=== PATIENT | female | born 1975 | race Caucasian/White ===

== ENCOUNTER → 2017-11-24 | Outpatient (CLI) | payer OTHER ==
[~2017-11-24] MED LIST: ACE3 PO; CITA-128 PO; IBU600 PO; IBU800 PO; LEVO750T25 PO; METR-1 PO; OND4 PO; PER PO; PREN-85 PO
--- NOTE | 2017-11-25 09:07 | RADIOLOGY IMAGING REPORT ---
FACILITY: [facility] PATIENT NAME: JAMMIE BERNABE : [id number] MR: [id number] V: [id number] EXAM DATE: [id number] ORDERING PHYSICIAN: VLADIMIR DIAZ TECHNOLOGIST: Bindu Nunn PROCEDURE:BILATERAL DIGITAL SCREENING MAMMOGRAM WITH CAD ASSISTED INTERPRETATION & 3D TOMOSYNTHESIS COMPARISON:None, this is the patient's baseline mammogram. INDICATIONS:SCREENING FINDINGS: Moderately heterogeneous fibroglandular tissue is seen throughout the breasts. The parenchymal pattern has remained stable allowing for difference in mammographic technique & patient positioning. There is no evidence of malignant appearing mass, malignant appearing calcifications or other secondary sign of malignancy in either breast. DIAGNOSTIC CATEGORY 1--NEGATIVE. RECOMMENDATIONS: ROUTINE MAMMOGRAM AND CLINICAL EVALUATION. IMPRESSION: BIRADS 1: Negative. No significant abnormality is seen. Dictated by: Charlene Arita M.D. on 11/24/2017 at 16:37 Transcribed by: ISMAEL on 11/25/2017 at 8:25 Approved by: Charlene Arita M.D. on 11/25/2017 at 9:06 [facility]
== END ==
LOC: MAMO 00:48
PROVIDERS: ATTEND Nurse Practitioner Psychiatric/Mental Health
DX: Z12.31 Encounter for screening mammogram for malignant neoplasm of breast (principal)
CPT/HCPCS: 77063; 77067

== ENCOUNTER 2018-02-22 07:28 | Emergency (ER) | payer OTHER ==
[2018-02-22] MEDS ORDERED: VENL37.594 PO (07:39)
[2018-02-22] MEDS ORDERED: BIRTH CONTROL (07:39)
[2018-02-22] MEDS ORDERED: NS(*) 0.9% 1000 ML BAG 1,000 ML IV ONE (07:55)
[2018-02-22] MEDS ORDERED: MORPHINE 2 MG/ML SYR IVP ONE ×2 (07:55→09:20)
--- NOTE | 2018-02-22 07:56 | ER Report ---
History and Physical Time Seen By MD: 07:30 Hx. of Stated Complaint: LLQ PAIN FOR A COUPLE DAYS. HX DIVERTIC HPI/ROS CHIEF COMPLAINT: Abdominal pain HISTORY OF PRESENT ILLNESS: 42-year-old female with history of diverticulitis, first diagnosed 3 years ago, presents with left lower quadrant abdominal pain since Thursday. Pain has been constant, crampy, moderately severe, nonradiating, worse with certain movements but always present. Patient states it feels like her prior diverticulitis. She has had fever and chills times one day. She has nausea. She denies vomiting, chest pain, shortness breath, change in urination, change in stool or leg swelling. She was last on antibiotics in December for sinus infection. She had colonoscopy which confirmed diverticulosis in the last 2 years. No recent travel REVIEW OF SYSTEMS: Constitutional: above Eyes: No discharge. ENT: No sore throat. Cardiovascular: No chest pain, no palpitations. Respiratory: No cough, no shortness of breath. Gastrointestinal: above Genitourinary: No hematuria. Musculoskeletal: No back pain. Skin: No rashes. Neurological: No headache. Remainder of the 14 system rev: Yes Allergies: Coded Allergies: tetracycline (Verified Allergy, Intermediate, HIVES, 02/22/18) hydromorphone (Verified Allergy, Unknown, 02/22/18) sulfamethoxazole (Verified Allergy, Unknown, 02/22/18) trimethoprim (Verified Allergy, Unknown, 02/22/18) Home Meds Reported Medications [ Control ] No Conflict Check 02/22/18 Venlafaxine Hcl (EFFEXOR XR) 37.5 Mg Cap.er.24h, 37.5 MG PO QDAY 02/22/18 Discontinued Reported Medications Citalopram Hydrobromide (Citalopram Hbr) 20 Mg Tablet, 20 MG PO DAILY, 0 Refills 07/15/10 Reviewed Nurses Notes: Yes Hx Smoking: No Hx Substance Use Disorder: No Hx Alcohol Use: Yes Constitutional Vital Sign - Last 24 Hours 02/22/18 02/22/18 02/22/18 02/22/18 07:34 07:35 07:45 08:00 Temp 98.3 Pulse 110 101 97 Resp 13 B/P (MAP) 143/84 143/84 (103) 121/71 (88) Pulse Ox 90 91 84 O2 Delivery Room Air 02/22/18 02/22/18 02/22/18 02/22/18 08:05 08:20 08:30 08:35 Pulse 95 94 98 B/P (MAP) 123/68 (86) Pulse Ox 91 92 92 02/22/18 02/22/18 08:50 09:00 B/P (MAP) 119/76 (90) Pulse Ox 93 Physical Exam General Appearance: The patient is alert, has no immediate need for airway protection and no signs of toxicity. [ ] Eyes: Pupils equal and round no pallor or injection. ENT, Mouth: Mucous membranes are moist. Respiratory: There are no retractions, lungs are clear to auscultation. Cardiovascular: Regular rate and rhythm. Gastrointestinal: LLQ ttp with mild rebound ttp, No other sig ttp. No distension Neurological: alert, oriented, moves all ext Skin: Warm and dry, no rashes. Musculoskeletal: Extremities are nontender, nonswollen and have full range of motion. DIFFERENTIAL DIAGNOSIS: After history and physical exam differential diagnosis was considered for abdominal pain including but not limited to appendicitis, cholecystitis, gastritis and urinary tract infection. Medical Decision Making Data Points Result Diagram: 02/22/18 0756 02/22/18 0756 Laboratory Hematology Test 02/22/18 07:31 02/22/18 07:56 Urine Color Yellow Urine Clarity Slightly-cloudy Urine pH 5.0 pH (4.8-9.5) Urine Specific [place] 1.018 Urine Protein Negative mg/dL (NEGATIVE) Urine Glucose (UA) Negative mg/dL (NEGATIVE) Urine Ketones Trace mg/dL (NEGATIVE) Urine Blood Large (NEGATIVE) Urine Nitrite Negative (NEGATIVE) Urine Bilirubin Negative (NEGATIVE) Urine Urobilinogen Negative mg/dL (0.2-1.9) Urine Leukocyte Esterase Negative (NEGATIVE) Urine RBC 13 /HPF (0-2/HPF) Urine WBC 2 /HPF (0-5/HPF) Urine Squamous Epithelial Cells Many /LPF (</=FEW) Urine Bacteria Negative /HPF (NONE-FEW) Urine Mucus Few /HPF (NONE-FEW) Urine HCG, Qualitative Negative (NEGATIVE) Red Blood Count 4.63 M/uL (4.17-5.56) Mean Corpuscular Volume 91.1 fL (80.0-96.0) Mean Corpuscular Hemoglobin 30.7 pg (26.0-33.0) Mean Corpuscular Hemoglobin Concent 33.7 g/dL (32.0-36.0) Red Cell Distribution Width 13.6 % (11.5-14.5) Mean Platelet Volume 8.4 fL (7.2-11.1) Neutrophils (%) (Auto) 77.1 % (39.4-72.5) Lymphocytes (%) (Auto) 11.9 % (17.6-49.6) Monocytes (%) (Auto) 10.2 % (4.1-12.4) Eosinophils (%) (Auto) 0.7 % (0.4-6.7) Basophils (%) (Auto) 0.1 % (0.3-1.4) Nucleated RBC Relative Count (auto) 0.0 /100WBC Neutrophils # (Auto) 9.9 K/uL (2.0-7.4) Lymphocytes # (Auto) 1.5 K/uL (1.3-3.6) Monocytes # (Auto) 1.3 K/uL (0.3-1.0) Eosinophils # (Auto) 0.1 K/uL (0.0-0.5) Basophils # (Auto) 0.0 K/uL (0.0-0.1) Nucleated RBC Absolute Count (auto) 0.00 K/uL Sodium Level 139 mmol/L (137-145) Potassium Level 3.9 mmol/L (3.5-5.0) Chloride Level 105 mmol/L (98-107) Carbon Dioxide Level 23 mmol/L (22-31) Blood Urea Nitrogen 9 mg/dl (7-18) Creatinine 0.70 mg/dl (0.52-1.04) Glomerular Filtration Rate Calc > 60.0 Random Glucose 118 mg/dl (75-110) Calcium Level 9.5 mg/dl (8.4-10.2) Total Bilirubin 0.6 mg/dl (0.2-1.3) Aspartate Amino Transf (AST/SGOT) 18 U/L (0-35) Alanine Aminotransferase (ALT/SGPT) 22 U/L (0-56) Alkaline Phosphatase 77 U/L (0-126) Total Protein 7.9 g/dl (6.3-8.2) Albumin 4.1 g/dl (3.5-5.0) Lipase 37 U/L (23-300) Chemistry Test 02/22/18 07:31 02/22/18 07:56 Urine Color Yellow Urine Clarity Slightly-cloudy Urine pH 5.0 pH (4.8-9.5) Urine Specific Minerva 1.018 Urine Protein Negative mg/dL (NEGATIVE) Urine Glucose (UA) Negative mg/dL (NEGATIVE) Urine Ketones Trace mg/dL (NEGATIVE) Urine Blood Large (NEGATIVE) Urine Nitrite Negative (NEGATIVE) Urine Bilirubin Negative (NEGATIVE) Urine Urobilinogen Negative mg/dL (0.2-1.9) Urine Leukocyte Esterase Negative (NEGATIVE) Urine RBC 13 /HPF (0-2/HPF) Urine WBC 2 /HPF (0-5/HPF) Urine Squamous Epithelial Cells Many /LPF (</=FEW) Urine Bacteria Negative /HPF (NONE-FEW) Urine Mucus Few /HPF (NONE-FEW) Urine HCG, Qualitative Negative (NEGATIVE) White Blood Count 12.9 k/uL (4.5-11.0) Red Blood Count 4.63 M/uL (4.17-5.56) Hemoglobin 14.2 g/dL (12.0-16.0) Hematocrit 42.2 % (34.0-47.0) Mean Corpuscular Volume 91.1 fL (80.0-96.0) Mean Corpuscular Hemoglobin 30.7 pg (26.0-33.0) Mean Corpuscular Hemoglobin Concent 33.7 g/dL (32.0-36.0) Red Cell Distribution Width 13.6 % (11.5-14.5) Platelet Count 265 K/uL (150-450) Mean Platelet Volume 8.4 fL (7.2-11.1) Neutrophils (%) (Auto) 77.1 % (39.4-72.5) Lymphocytes (%) (Auto) 11.9 % (17.6-49.6) Monocytes (%) (Auto) 10.2 % (4.1-12.4) Eosinophils (%) (Auto) 0.7 % (0.4-6.7) Basophils (%) (Auto) 0.1 % (0.3-1.4) Nucleated RBC Relative Count (auto) 0.0 /100WBC Neutrophils # (Auto) 9.9 K/uL (2.0-7.4) Lymphocytes # (Auto) 1.5 K/uL (1.3-3.6) Monocytes # (Auto) 1.3 K/uL (0.3-1.0) Eosinophils # (Auto) 0.1 K/uL (0.0-0.5) Basophils # (Auto) 0.0 K/uL (0.0-0.1) Nucleated RBC Absolute Count (auto) 0.00 K/uL Glomerular Filtration Rate Calc > 60.0 Calcium Level 9.5 mg/dl (8.4-10.2) Total Bilirubin 0.6 mg/dl (0.2-1.3) Aspartate Amino Transf (AST/SGOT) 18 U/L (0-35) Alanine Aminotransferase (ALT/SGPT) 22 U/L (0-56) Alkaline Phosphatase 77 U/L (0-126) Total Protein 7.9 g/dl (6.3-8.2) Albumin 4.1 g/dl (3.5-5.0) Lipase 37 U/L (23-300) Urinalysis Test 02/22/18 07:31 Urine Color Yellow Urine Clarity Slightly-cloudy Urine pH 5.0 pH (4.8-9.5) Urine Specific Minerv[place] 1.018 Urine Protein Negative mg/dL (NEGATIVE) Urine Glucose (UA) Negative mg/dL (NEGATIVE) Urine Ketones Trace mg/dL (NEGATIVE) Urine Blood Large (NEGATIVE) Urine Nitrite Negative (NEGATIVE) Urine Bilirubin Negative (NEGATIVE) Urine Urobilinogen Negative mg/dL (0.2-1.9) Urine Leukocyte Esterase Negative (NEGATIVE) Urine RBC 13 /HPF (0-2/HPF) Urine WBC 2 /HPF (0-5/HPF) Urine Squamous Epithelial Cells Many /LPF (</=FEW) Urine Bacteria Negative /HPF (NONE-FEW) Urine Mucus Few /HPF (NONE-FEW) Urine HCG, Qualitative Negative (NEGATIVE) ED Course/Re-evaluation ED Course Pt presents with sgs/sympoms c/w diverticulitis similar to past presentation. labs c/w this however, hematuria noted as well. CT ordered to differentiate diverticulitis v nephrolithiasis and is c/w diverticulitis with sig inflammation but without complication. I discussed at length with pt who is sig improved with ed meds. Will give first dose abx, and d/c with strict rtn precautions. Decision to Disposition Date: Feb 22, 2018 Decision to Disposition Time: 09:57 Depart Departure Latest Vital Signs Vital Signs Date Time Temp Pulse Resp B/P (MAP) Pulse Ox O2 Delivery O2 Flow Rate FiO2 02/22/18 09:00 119/76 (90) 02/22/18 08:50 93 02/22/18 08:35 98 02/22/18 07:34 98.3 13 Room Air Impression: Primary Impression: Diverticulitis Condition: Improved Disposition: HOME OR SELF-CARE Referrals: LUANN SARAVIA MD (PCP) 1 Week New Scripts Hydrocodone Bit/Acetaminophen (NORCO 5-325 TABLET) 1 Each Tablet 1 EACH PO Q4-6H for Nausea, #20 TAB Prov: DANIEL DEAN MD 02/22/18 Ciprofloxacin 500 Mg Tab (CIPROFLOXACIN 500 MG TAB) 500 Mg Tablet 500 MG PO Q12H for 10 Days, #20 TAB Prov: DANIEL DEAN MD 02/22/18 Metronidazole (FLAGYL) 500 Mg Tablet 500 MG PO Q8H for 10 Days, #30 TAB Prov: DANIEL DEAN MD 02/22/18 Patient Instructions: Diverticulitis (ED) Additional Instructions: As we discussed, take antibiotics as prescribed. Do NOT drink alcohol while taking these antibiotics. Also, please monitor and return for uncontrolled diarrhea, new and concerning muscle or joint pains, or any concerns. You may take ibuprofen 600mg every 8 hours for pain and inflammation, and use norco as needed for breakthrough pain. I recommend miralax as directed while taking norco. Please return if worse or for any concerns. DANIEL DEAN MD Feb 22, 2018 07:56
[2018-02-22 08:00] LABS: PLATELET COUNT, AUTOMATED 265 K/uL (150-450)
[2018-02-22] MEDS ORDERED: IOPAMIDOL 76% 75 ML INFUS BTL 75 ML ONE (08:53)
--- NOTE | 2018-02-22 09:52 | RADIOLOGY IMAGING REPORT ---
FACILITY: [facility] PATIENT NAME: Jodie Hunter : 1975 MR: [id number] V: [id number] EXAM DATE: ORDERING PHYSICIAN: DANIEL DEAN TECHNOLOGIST: Location: [facility] Patient: Jodie Hunter : 1975 Visit/Account:[id number] Date of Sevice: 02/22/2018 CT ABDOMEN PELVIS W/ CON HISTORY:llq pain, prior diverticulitis, hematuria TECHNIQUE: CT abdomen and pelvis with intravenous contrast. Contiguous axial images of the abdomen and pelvis was performed from the lung bases to the symphysis pubis. One of the following dose optimization techniques was utilized in the performance of this exam: Autom ated exposure control; adjustment of the mA and/or kV according to the patient's size; or use of an i terative reconstruction technique. Specific details can be referenced in the facility's radiology C T exam operational policy. CONTRAST: 75 cc of [id number] COMPARISON: None. FINDINGS: Visualized lung bases: 3 mm right middle lobe micronodules noted image 1 Hepatobiliary: There is fatty infiltration of the liver. Gallbladder is absent. Spleen: Negative. Adrenals: Negative. Kidneys/: Negative. Pancreas: Negative. GI: There is diverticulitis in the left lower quadrant at the junction of the descending and sigmoid colon. Significant pericolonic inflammatory changes are seen. No evidence for perforation or absce ss formation. The appendix is normal. Vessels/spaces/nodes: Negative. Bones/soft tissues: Negative. IMPRESSION: 1. Diverticulitis in the left lower quadrant at the junction of the descending and sigmoid colon. S ignificant pericolonic inflammatory changes are seen but there is no evidence for abscess formation o r bowel perforation. Report Dictated By: Chris Reyes MD at 02/22/2018 9:32 AM Report E-Signed By: Chris Reyes MD at 02/22/2018 9:47 AM WSN:[id number]
[2018-02-22 10:00] VITALS: BP 125/53
[2018-02-22] MEDS ORDERED: METRONIDAZOLE 500 MG TABLET PO ONE (10:00)
[2018-02-22] MEDS ORDERED: CIPROFLOXACIN 500 MG TAB PO ONE (10:00)
[2018-02-22] MEDS ORDERED: METR-1 PO (10:02)
[2018-02-22] MEDS ORDERED: CIPR-214 PO (10:03)
[2018-02-22] MEDS ORDERED: HYDR-653 PO (10:03)
== END 2018-02-22 10:10 | disposition home or self-care (01) ==
LOC: ER 07:42
DX: K57.32 Diverticulitis of large intestine without perforation or abscess without bleeding (principal)
CPT/HCPCS: 74177; 81001; 81025; 83690; 85025; 96361; 96374; 96376; 99284; J2270; J7030; Q9967; 82040; 82247; 82310; 82374; 82435; 82565; 82947; 84075; 84132; 84155; 84295; 84450; 84460; 84520